=== PATIENT | female | born 1955 | race Caucasian/White ===

== ENCOUNTER → 2020-07-30 15:17 | Outpatient (BNVA) | payer OTHER, SELFPAY | PROVIDERS: Visit Provider Emergency Medicine | DX: T14.90XA Injury, unspecified, initial encounter (principal); S52.592A Other fractures of lower end of left radius, initial encounter for closed fracture | CPT/HCPCS: 73110 ==

== ENCOUNTER → 2020-08-04 17:14 | Outpatient (BNVA) | payer OTHER, SELFPAY | PROVIDERS: Visit Provider Specialist | DX: S52.502A Unspecified fracture of the lower end of left radius, initial encounter for closed fracture (principal) | CPT/HCPCS: 87635 ==

== ENCOUNTER 2020-08-06 09:27 | Day surgery (SDC) | payer OTHER, SELFPAY ==
[2020-08-05 10:29] VITALS: BMI 22.7
[2020-08-06] VITALS (7 sets, daily range): BP systolic 131–157; BP diastolic 77–89; PULSE 75–110; RESP 17–20; TEMP 36.6–36.9; O2SAT 94–100
--- NOTE | 2020-08-06 | SCC_ITS ---
Procedure Done: Open reduction internal fixation left distal radius displaced fracture utilizing the Meigs short narrow distal radius plate 114.5 seconds of fluoroscopic guidance, for a cumulative dose of 2.08 mGy, was provided to Dr. Yip by the radiology department. C-arm images of the LEFT wrist were saved for the patient's permanent record. [facility]
--- NOTE | 2020-08-06 | XR_ITS ---
WS: [id number] Left wrist, C-arm fluoroscopy and AP and lateral, 08/06/2020 Clinical Data: ORIF LT. WRIST Comparison: Left wrist, 07/30/2020. Findings: The distal left radial fracture is reduced with the aid of a ventral orthopedic plate fixed with mult iple screws. XR/XR wrist LT 2V [id number] Impression: Internal fixation of distal left radial fracture.
[2020-08-06] MEDS: sodium chloride 0.9% 1,000 ML 30 ML IV (10:03)
[2020-08-06] MEDS: CELEcoxib 200 mg Capsule 400 MG PO (10:04)
--- NOTE | 2020-08-06 10:25 | ANES.PREANE2 ---
Pre-Anesthetic Assessment Pre-Anesthetic Assessment: Height/Weight: Height 1.68 m Weight 63.957 kg Temp Pulse Resp BP Pulse Ox 98.5 F 75 18 157/81 100 08/06/20 09:44 08/06/20 09:44 08/06/20 09:44 08/06/20 09:44 08/06/20 09:44 Preop Diagnosis: Left displaced distal radius fracture Proposed Procedure: Operation Date: 08/06/20 11:00 Proposed Procedures p ORIF Left distal radius Wrist 90445 S52.502A(Left) - Loida Yip MD Familial anesthetic complications: none Last intake: Intake Last Liquid Date 08/05/20 Last Liquid Time 23:00 Last Solid Date 08/05/20 Last Solid Time 12:00 Social: Social History: No alcohol and No tobacco Exam: Pre-Anes Outpt Exam: alert, oriented x 3, clear to auscultation bilaterally and regular rate & rhythm Airway: Cervical ROM: WNL MP: 2 Dentition: Chipped CV/HEM: CV/HEM: Palp Comments: Hx bradycardia (down to 40s on EKG) Able to achieve > 4 METS : Comments: Subjective decrease in UOP since taking T3 GI: Comments: H pylori Anesthetic Plan: ASA status: 2 Risk of > 500 ml blood loss (7ml/kg in children): No Meds/Allergies Current Medications: Current Medications Generic Name Dose Route Start Last Admin Trade Name Freq PRN Reason Stop Dose Admin Sodium Chloride 1,000 mls @ 30 ml s/hr 08/06/20 09:30 08/06/20 10:03 Sodium Chloride 0.9% IV 08/07/20 09:29 30 mls/hr .Q24H EAMON Administration PFSH Anesthesia PFSH: Family History Denies family history of Hyperlipidemia Hypertension Social History Smoking and tobacco status: former smoker Alcohol intake: never Data Anesthesia CBC & Chem 7: 08/06/20 10:06 08/06/20 10:06 Other Labs: Laboratory Results - last 48 hr 08/06/20 08/06/20 09:59 10:06 WBC 6.2 RBC 4.28 Hgb 12.8 Hct 39.2 MCV 91.6 MCH 29.9 MCHC 32.7 RDW 12.6 Plt Count 246 MPV 11.6 H Neut % (Auto) 75.3 Lymph % (Auto) 18.4 Gilchrist % (Auto) 5.2 Eos % (Auto) 0.3 Baso % (Auto) 0.5 Neut # (Auto) 4.68 Lymph # (Auto) 1.1 Gilchrist # (Auto) 0.3 Eos # (Auto) 0.0 Baso # (Auto) 0.0 Nucleated RBC % (auto) 0 Nucleated RBCs # 0.0 Urine Color Yellow Urine Appearance Clear Urine pH 6 Ur Specific [place] 1.005 Urine Protein Neg Urine Glucose (UA) Norm Urine Ketones 1+ H Urine Blood Neg Urine Nitrate Negative Urine Bilirubin Neg Urine Urobilinogen Neg Ur Leukocyte Esterase Negative Cardiac Studies: No Data to Display
[2020-08-06 10:26] LABS: Add Urine Microscopic? NO
[2020-08-06] MEDS: midazolam 1 mg/mL INJ 5 ML 5 MG IVP (10:32)
[2020-08-06 10:37] LABS: Bilirubin Urine Neg (Negative); Blood Urine Neg (Negative); Glucose Urine UA Norm (Normal); Ketones Urine 1+ (Negative); Leukocyte Esterase Urine Negative (Negative); Nitrate Urine Negative (Negative); Protein Urine Neg (Negative); Specific Gravity, Urine 1.005 (1.005-1.030); Urine Appearance Clear (CLEAR); Urine Color Yellow (Yellow); Urobilinogen Urine Neg (Negative); pH Urine 6 (5-7)
[2020-08-06 10:43] LABS: Basophils % 0.5 %; Eosinophils % 0.3 %; Hematocrit 39.2 % (37.0-47.0); Hemoglobin 12.8 g/dL (11.5-15.3); Lymphocytes # 1.1 10^3/uL (0.8-4.8); Lymphocytes % 18.4 %; Mean Corpuscular HGB Conc 32.7 g/dL (30.0-36.0); Mean Corpuscular Hemoglobin 29.9 pg (28.0-34.0); Mean Corpuscular Volume 91.6 fL (81-99); Mean Platelet Volume 11.6 fL (7.4-10.4); Monocytes # 0.3 10^3/uL (0.2-0.9); Monocytes % 5.2 %; Neutrophils # 4.68 10^3/uL (1.8-7.7); Neutrophils % 75.3 %; Nucleated Red Blood Cells % 0 %; Platelet Count 246 10^3/cmm (130-400); Red Blood Count 4.28 10^6/uL (4.1-5.3); Red Cell Distribution Width 12.6 % (12.1-15.1); White Blood Count 6.2 10^3/uL (4.0-10.0)
[2020-08-06 10:49] LABS: Anion Gap 15.5 (5-19); Blood Urea Nitrogen 6 mg/dL (8-23); Calcium 9.7 mg/dL (8.5-10.5); Carbon Dioxide 27 mmol/L (22-29); Chloride 100 mmol/L (98-107); Creatinine Clr Calc Pharmacy 79.4267; Glomerular Filtration Rate 84.5 mL/min (90-130); Glucose 96 mg/dL (65-115); Osmolality Calculated 285 mOsm/kg (285-295); Potassium 3.5 mmol/L (3.5-5.1); Sodium 139 mmol/L (136-145)
--- NOTE | 2020-08-06 10:51 | ANES.PROC ---
Anesthesia Procedures Procedure/Date: 08/06/20 Nerve Block ^: Nerve Block 1: Main Anesthesia: general anesthesia Time Out Performed: Yes Consent: requested by attending/covering physician, from patient, from other, risks and benefits reviewed and patient agrees to proceed Nerve block location: axillary (+ musculocutaneous Nerve (L)) Anesthesia monitors applied: pulse oximetry, EKG, BP cuff and oxygen Nerve block position: supine Anesthetic Used: ropivicaine 0.5% and with decadron (4 mg) Amount of anesthesia used (mL): 30 Ultrasound used to: visualize and ID brachial plexus Nerve Stimulator Used?: No Interscalene/Femoral BLK: 2 stimuplex 22 g needle used for position and inplane approach Injection: neg aspiration of heme and paresthesia +/- Patient Tolerated Procedure: well and no complications Complications: none
--- NOTE | 2020-08-06 11:07 | W.PM.OPSUD ---
Surgery/Procedure H&P Update DATE OF PROCEDURE: August 06, 2020 DATE H&P PERFORMED: 08/04/20 H&P UPDATE INFORMATION: I have reviewed H&P completed within last 30 days, I have examined patient prior to procedure, No changes to prior documentation and H&P is in [facility] on date indicated PREOP DIAGNOSIS: Left displaced distal radius fracture PLANNED PROCEDURE: Operation Date: 08/06/20 11:00 Proposed Procedures p ORIF Left distal radius Wrist 44536 S52.502A(Left) - Loida Yip MD Related Problem List Diagnoses (1) Distal radius fracture, left: Qualifiers: Encounter type: initial encounter Fracture type: closed Fracture morphology: other intra-articular Qualified Code(s): S52.572A - Other intraarticular fracture of lower end of left radius, initial encounter for closed fracture
[2020-08-06] MEDS: clindamycin 600 MG/50 ML PREMIX 100 MG IV (11:11)
[2020-08-06] MEDS: ceFAZolin 1,000 mg SDV 1000 MG IRRIGATION (11:48)
--- NOTE | 2020-08-06 12:57 | SUR.PHASEI ---
1250 PT HAS SENSATION/MOVEMENT IN L. FINGERS, CAP REFILL <3 SEC
--- NOTE | 2020-08-06 12:59 | PM.OP ---
Operative Report Date of procedure: August 06, 2020 Pre-op Diagnosis: Left comminuted right distal radius fracture, displaced and intra-articular Post-op diagnosis: same Procedure Done: Open reduction internal fixation left distal radius displaced fracture utilizing the Deepa short narrow distal radius plate Specimens removed/disposition: None Pathology: none sent Surgeon: Loida Yip Process Design Engineer: [facility] OR technicians Anesthesia: General (Intubated, ASA 2) Estimated blood loss (mL): 5 Tourniquet time (min): 55 Tourniquet time: At 250 mmHg IV fluids (mL): 700 Urine output (mL): 0 Urine output: No Martin Complications: None Findings: Comminuted, displaced, angulated, intra-articular left distal radius fracture Condition: stable Disposition: PACU Brief History: This 64-year-old woman presented to my office with complaints of a left distal radius fracture which is comminuted, intra-articular and significantly displaced angulated. Discussion was undertaken with the patient regarding the position of the fracture, and it was felt that she would benefit from open reduction internal fixation. Therefore, after discussion, this was scheduled for her. Procedure: Patient was brought to the operating theater, and after undergoing adequate general anesthesia per ET preceded by an axillary block in the preop holding area, the patient's left upper extremity was prepped and draped in usual fashion utilizing DuraPrep. The patient had a tourniquet placed high on the arm prior to prepping and draping. Following prepping and draping, the arm was exsanguinated and the tourniquet was elevated. Total tourniquet time was 55 minutes at 250 mmHg. Prior to commencement of the surgical procedure, a surgical pause was performed. At the time of the surgical pause, we confirmed the site and side of surgery as well as the patient's identity and preoperative surgical markings. We also confirmed availability of equipment and appropriate preoperative IV antibiotics which was Clindamycin 600 mg. Fluoroscopy was also brought into position so that we could visualize the fracture and hardware throughout the surgical procedure. The fracture was evaluated prior to tourniquet placement. Following elevation of the tourniquet as well as the surgical pause, an incision was made along the palmaris longus and continued down onto the volar surface of the radius. Care was taken to avoid injury throughout the surgical procedure to the median nerve as well as to the radial artery. The flexor carpi radialis was retracted medially. We were able to essentially elevate the sheath of the flexor carpi radialis and then I was able to place my finger directly onto the distal radius. For the most part, the patient did her own dissection at the time of her injury. Soft tissues were elevated off the distal radius to allow access to the fracture and also to the volar aspect of the distal radial shaft. Fluoroscopy was used to determine whether or not the reduction was appropriate. We were able to reduce the fracture nearly anatomically, but there was significant comminution. We then evaluated the plate and chose the short narrow anatomic 4 hole plate for the right distal radius. The plate was attached proximally and distally without difficulty. A combination of locking and nonlocking screws were utilized to attach the plate utilizing exclusively locking screws distally. We had excellent fixation and reduction of the fracture. Fluoroscopy was utilized during the procedure. Once the plate was fully attached, we had a near anatomic position to the distal radius and the distal radius was out to length. Being satisfied with position, the area was copiously irrigated. There were no fascial tissues to close, and therefore we closed the subcutaneous tissues with 3-0 interrupted Monocryl. We then placed a subcuticular 4-0 Monocryl suture which was running. This was followed by Exofin, Steri-Strips, and OpSite. A volar splint was wrapped into position over soft roll and this was wrapped in place with an Nik wrap. The tourniquet was released after 55 minutes. There were no complications. There were no specimens. Patient was returned to recovery room in a satisfactory condition. She was subsequently discharged home. She will follow-up with me as scheduled in her discharge instructions. Associated Problem List Diagnoses (1) Distal radius fracture, left: Qualifiers: Encounter type: initial encounter Fracture type: closed Fracture morphology: other intra-articular Qualified Code(s): S52.572A - Other intraarticular fracture of lower end of left radius, initial encounter for closed fracture
--- NOTE | 2020-08-06 13:48 | ANE.PACU2 ---
Inpatient post-anesthesia follow up: Airway intact: Yes Vital signs: Temperature 97.8 F Pulse Rate 89 Respiratory Rate 18 Blood Pressure 139/78 Pulse Oximetry 94 Oxygen Delivery Me thod Room Air Oxygen Flow Rate 8 Fraction of Inspir ed Oxygen Hydration adequate: Yes Nausea and vomiting: No Pain level: 1 Mental status: Baseline Additional Comments: Block working well
== END 2020-08-06 14:06 | disposition home or self-care (01) ==
PROVIDERS: Visit Provider Specialist
PROC: (CPT 25609; principal; 2020-08-06 11:00)
DX: S52.572A Other intraarticular fracture of lower end of left radius, initial encounter for closed fracture (principal); W19.XXXA Unspecified fall, initial encounter; Z87.891 Personal history of nicotine dependence
CPT/HCPCS: 25609; 12345; 36415; 64417; 73100; 76000; 76942; 80048; 81003; 85025; 96365; 96374; C1713; J0131; J0690; J1100; J2250; J2405; J2704; J2710; J2795; J3010; J3490; J7030

== ENCOUNTER → 2020-08-23 15:46 | Outpatient (BNVA) | payer OTHER, SELFPAY | PROVIDERS: Visit Provider Specialist | DX: S52.572A Other intraarticular fracture of lower end of left radius, initial encounter for closed fracture (principal) | CPT/HCPCS: 73110 ==

== ENCOUNTER 2020-08-23 16:50 | Outpatient (CLI) | payer OTHER, SELFPAY | END 2020-08-23 16:51 | disposition home or self-care (01) | LOC: SPT 08-24 08:51 | PROVIDERS: Visit Provider Specialist | DX: Z46.89 Encounter for fitting and adjustment of other specified devices (principal); S52.572A Other intraarticular fracture of lower end of left radius, initial encounter for closed fracture; W19.XXXA Unspecified fall, initial encounter | CPT/HCPCS: 97760; L3982 ==

== ENCOUNTER → 2020-09-15 14:33 | Outpatient (BNVA) | payer OTHER, SELFPAY | PROVIDERS: Visit Provider Specialist | DX: S52.572A Other intraarticular fracture of lower end of left radius, initial encounter for closed fracture (principal); X58.XXXA Exposure to other specified factors, initial encounter | CPT/HCPCS: 73110 ==